=== PATIENT | male | born 1955 | race American Indian/Alaskan Native ===

== ENCOUNTER 2018-03-16 10:51 | Inpatient (IN) | payer BC, OTHER ==
[2018-03-16] MEDS ORDERED: BOOSTRIX IM ONE (11:11)
[2018-03-16] MEDS ORDERED: XYLOCAINE 2% INFILTRATI ONE (11:12)
[2018-03-16] MEDS ORDERED: MARCAINE 0.5% INFILTRATI ONE (11:12)
[2018-03-16] MEDS ORDERED: NACL 0.9% 500 ML IR ONE (11:54)
[2018-03-16 12:19] LABS: Basophils % (Auto) 0.5 % (0.0-1.8); Eosinophils # (Auto) 0.1 K/mm3 (0.0-0.4); Eosinophils % (Auto) 2.7 % (0.0-4.3); Hematocrit 44.8 % (35.5-45.6); Hemoglobin 15.1 gm/dl (11.8-15.2); Lymphocytes # (Auto) 2.3 K/mm3 (1.2-5.4); Lymphocytes % (Auto) 49.3 % (13.4-35.0); Mean Corpuscular HGB Conc 34 % (32-34); Mean Corpuscular Hemoglobin 29 pg (28-32); Mean Corpuscular Volume 85 fl (84-94); Monocytes # (Auto) 0.4 K/mm3 (0.0-0.8); Monocytes % (Auto) 8.8 % (0.0-7.3); Platelet Count 169 K/mm3 (140-440); Red Blood Count 5.28 M/mm3 (3.65-5.03); Red Cell Distribution Width 13.4 % (13.2-15.2)
[2018-03-16 12:28] LABS: Alanine Aminotransferase 33 units/L (7-56); Albumin 4.4 g/dL (3.9-5); BUN/Creatinine Ratio 14; Blood Urea Nitrogen 11 mg/dL (9-20); Calcium 8.9 mg/dL (8.4-10.2); Hemolysis Index 61
[2018-03-16 12:30] LABS: Bilirubin,Direct < 0.2 mg/dL (0-0.2)
[2018-03-16 12:33] LABS: Hepatitis A Antibody IgM Non-Reactive (NonReactive); Hepatitis B Core IgM Non-Reactive (NonReactive); Hepatitis B Surface Antigen Non-Reactive (Negative); Hepatitis C Virus Antibody Non-Reactive (NonReactive)
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
[2018-03-16] MEDS: ZOSYN/NS 4.5GM/100ML 4.5 GM/100 ML VIAL IV SCH ×2 (14:27→21:41)
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
[2018-03-16] MEDS ORDERED: MORPHINE IV PRN (19:57)
[2018-03-16] MEDS ORDERED: SODIUM CHLORIDE FLUSH SYRINGE 10 ML IV PRN (19:57)
[2018-03-16] MEDS ORDERED: TYLENOL PO PRN (19:57)
[2018-03-16] MEDS ORDERED: ZOFRAN IV PRN (19:57)
[2018-03-16] MEDS: SODIUM CHLORIDE FLUSH SYRINGE 10 ML IV SCH (21:41)
[2018-03-16] MEDS: PERCOCET 5/325 PO PRN (22:07)
[2018-03-16] MEDS: CLEOCIN 900 MG/50 mL 900 MG/50 ML BAG IV SCH (22:26)
[2018-03-17] MEDS: CLEOCIN 900 MG/50 mL 900 MG/50 ML BAG IV SCH ×2 (05:32→13:56)
[2018-03-17] MEDS: ZOSYN/NS 4.5GM/100ML 4.5 GM/100 ML VIAL IV SCH (06:13)
[2018-03-17] MEDS: PERCOCET 5/325 PO PRN (10:46)
[2018-03-17] MEDS: SODIUM CHLORIDE FLUSH SYRINGE 10 ML IV SCH (10:47)
[2018-03-17 11:20] LABS: Basophils % (Auto) 0.5 % (0.0-1.8); Eosinophils # (Auto) 0.1 K/mm3 (0.0-0.4); Eosinophils % (Auto) 0.9 % (0.0-4.3); Hematocrit 41.1 % (35.5-45.6); Hemoglobin 13.8 gm/dl (11.8-15.2); Lymphocytes # (Auto) 1.2 K/mm3 (1.2-5.4); Lymphocytes % (Auto) 18.6 % (13.4-35.0); Mean Corpuscular HGB Conc 34 % (32-34); Mean Corpuscular Hemoglobin 29 pg (28-32); Mean Corpuscular Volume 86 fl (84-94); Monocytes # (Auto) 0.6 K/mm3 (0.0-0.8); Monocytes % (Auto) 8.3 % (0.0-7.3); Platelet Count 153 K/mm3 (140-440); Red Cell Distribution Width 13.4 % (13.2-15.2)
[2018-03-17 11:39] LABS: BUN/Creatinine Ratio 12; Blood Urea Nitrogen 11 mg/dL (9-20); Calcium 8.8 mg/dL (8.4-10.2); Hemolysis Index 52
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
[2018-03-17 15:21] VITALS: BP 140/91
== END 2018-03-17 16:00 | disposition home or self-care (01) | DRG 605 ==
LOC: ED 10:51 → 3A 15:53
PROVIDERS: ADMIT Internal Medicine; ATTEND Internal Medicine
PROC: 0HBGXZZ Excision of Left Hand Skin, External Approach (ICD-10-PCS; principal; 2018-03-16)
DX: S61.052A Open bite of left thumb without damage to nail, initial encounter (principal); Y92.238 Other place in hospital as the place of occurrence of the external cause; Y04.1XXA Assault by human bite, initial encounter; Y93.89 Activity, other specified; Y99.8 Other external cause status; L03.012 Cellulitis of left finger
CPT/HCPCS: 36415; 80048; 80074; 83036; 85025; 86705; 87806; 90715; J2270; J2543

== ENCOUNTER 2018-03-19 10:12 | Outpatient (CLI) | payer OTHER ==
[2018-03-19] MEDS ORDERED: XYLOCAINE TOPICAL 2% 5ML ONE (11:38)
[2018-03-20] MEDS ORDERED: XYLOCAINE TOPICAL 2% 5ML TP ONE (15:22)
== END 2018-03-19 10:13 | disposition home or self-care (01) ==
LOC: WOUND 10:12
PROVIDERS: ATTEND Surgery
DX: S61.052A Open bite of left thumb without damage to nail, initial encounter (principal); I10 Essential (primary) hypertension; E78.5 Hyperlipidemia, unspecified; W50.3XXA Accidental bite by another person, initial encounter; Y93.89 Activity, other specified; Y92.89 Other specified places as the place of occurrence of the external cause; Y99.8 Other external cause status
CPT/HCPCS: 11042; G0463

== ENCOUNTER 2018-03-26 10:08 | Outpatient (CLI) | payer OTHER ==
[2018-03-26] MEDS ORDERED: XYLOCAINE TOPICAL 2% 5ML TP ONE (11:00)
== END 2018-03-26 10:09 | disposition home or self-care (01) ==
LOC: WOUND 10:08
PROVIDERS: ATTEND Surgery
DX: S61.002D Unspecified open wound of left thumb without damage to nail, subsequent encounter (principal); E78.5 Hyperlipidemia, unspecified; I10 Essential (primary) hypertension; W50.3XXD Accidental bite by another person, subsequent encounter

== ENCOUNTER 2018-04-02 08:01 | Outpatient (CLI) | payer OTHER ==
[2018-04-02] MEDS ORDERED: XYLOCAINE TOPICAL 4% TP ONE (08:32)
== END 2018-04-02 08:02 | disposition home or self-care (01) ==
LOC: WOUND 08:01
PROVIDERS: ATTEND Surgery
DX: S61.052D Open bite of left thumb without damage to nail, subsequent encounter (principal); E78.5 Hyperlipidemia, unspecified; I10 Essential (primary) hypertension; W50.3XXD Accidental bite by another person, subsequent encounter

== ENCOUNTER 2018-04-09 08:08 | Outpatient (CLI) | payer OTHER | END 2018-04-09 08:09 | disposition home or self-care (01) | LOC: WOUND 08:08 | PROVIDERS: ATTEND Surgery | DX: S61.052D Open bite of left thumb without damage to nail, subsequent encounter (principal); E78.5 Hyperlipidemia, unspecified; I10 Essential (primary) hypertension; W50.3XXD Accidental bite by another person, subsequent encounter | CPT/HCPCS: 99214; G0463 ==

== ENCOUNTER 2018-07-24 06:57 | Outpatient (CLI) | payer BC ==
[2018-07-24 07:27] LABS: Hematocrit 44.8 % (35.5-45.6); Hemoglobin 15.3 gm/dl (11.8-15.2); Mean Corpuscular HGB Conc 34 % (32-34); Mean Corpuscular Hemoglobin 29 pg (28-32); Mean Corpuscular Volume 85 fl (84-94); Platelet Count 200 K/mm3 (140-440); Red Blood Count 5.28 M/mm3 (3.65-5.03); Red Cell Distribution Width 13.2 % (13.2-15.2)
[2018-07-24 07:51] LABS: Alanine Aminotransferase 27 units/L (7-56); Albumin 4.5 g/dL (3.9-5); BUN/Creatinine Ratio 16; Blood Urea Nitrogen 13 mg/dL (9-20); Calcium 9.6 mg/dL (8.4-10.2); Hemolysis Index 6
== END 2018-07-24 06:58 | disposition home or self-care (01) ==
LOC: LAB 06:57
PROVIDERS: ATTEND Internal Medicine
DX: I13.2 Hypertensive heart and chronic kidney disease with heart failure and with stage 5 chronic kidney disease, or end stage renal disease (principal); I50.9 Heart failure, unspecified; N18.6 End stage renal disease; J44.9 Chronic obstructive pulmonary disease, unspecified
CPT/HCPCS: 36415; 80053; 84153; 85027

== ENCOUNTER 2019-04-17 08:12 | Outpatient (CLI) | payer BC ==
[2019-04-17 08:33] LABS: Hematocrit 46.1 % (35.5-45.6); Hemoglobin 15.7 gm/dl (11.8-15.2); Mean Corpuscular HGB Conc 34 % (32-34); Mean Corpuscular Volume 87 fl (84-94); Platelet Count 180 K/mm3 (140-440); Red Blood Count 5.31 M/mm3 (3.65-5.03); Red Cell Distribution Width 13.1 % (13.2-15.2)
[2019-04-17 08:55] LABS: Alanine Aminotransferase 38 units/L (7-56); Albumin 4.5 g/dL (3.9-5); BUN/Creatinine Ratio 12; Blood Urea Nitrogen 11 mg/dL (9-20); Calcium 9.6 mg/dL (8.4-10.2); Chol/HDL Ratio 5.88 %; HDL Cholesterol 34 mg/dL (40-59); Hemolysis Index 12; LDL Cholesterol,Direct 102 mg/dL (50-130)
== END 2019-04-17 08:13 | disposition home or self-care (01) ==
LOC: LAB 08:12
PROVIDERS: ATTEND Internal Medicine
DX: I10 Essential (primary) hypertension (principal); E78.5 Hyperlipidemia, unspecified
CPT/HCPCS: 36415; 80053; 80061; 85027

== ENCOUNTER 2019-12-23 05:58 | Outpatient (CLI) | payer BC ==
[2019-12-23 06:42] LABS: Hematocrit 48.1 % (35.5-45.6); Hemoglobin 15.9 gm/dl (11.8-15.2); Mean Corpuscular HGB Conc 33 % (32-34); Mean Corpuscular Volume 87 fl (84-94); Platelet Count 196 K/mm3 (140-440); Red Blood Count 5.54 M/mm3 (3.65-5.03)
[2019-12-23 07:02] LABS: Alanine Aminotransferase 47 units/L (7-56); Albumin 4.5 g/dL (3.9-5); BUN/Creatinine Ratio 14; Blood Urea Nitrogen 13 mg/dL (9-20); Calcium 9.8 mg/dL (8.4-10.2); Hemolysis Index 5
== END 2019-12-23 05:59 | disposition home or self-care (01) ==
LOC: LAB 05:58
PROVIDERS: ATTEND Internal Medicine
DX: Z12.5 Encounter for screening for malignant neoplasm of prostate (principal)
CPT/HCPCS: 36415; 80053; 83036; 83690; 84154; 85027

== ENCOUNTER 2020-08-07 20:22 | Emergency (ER) | payer BC ==
[2020-08-07 20:37] VITALS: BP 145/88
[2020-08-07 21:14] LABS: Basophils % (Auto) 0.3 % (0.0-1.8); Eosinophils % (Auto) 0.5 % (0.0-4.3); Hemoglobin 14.9 gm/dl (11.8-15.2); Lymphocytes # (Auto) 1.1 K/mm3 (1.2-5.4); Lymphocytes % (Auto) 16.4 % (13.4-35.0); Mean Corpuscular HGB Conc 33 % (32-34); Mean Corpuscular Volume 88 fl (84-94); Monocytes # (Auto) 0.7 K/mm3 (0.0-0.8); Monocytes % (Auto) 10.1 % (0.0-7.3); Platelet Count 161 K/mm3 (140-440); Red Cell Distribution Width 12.9 % (13.2-15.2)
[2020-08-07 21:20] LABS: BUN/Creatinine Ratio 10; Blood Urea Nitrogen 10 mg/dL (9-20); Calcium 9.5 mg/dL (8.4-10.2); Hemolysis Index 20
[2020-08-07] MEDS ORDERED: ACETAMINOPHEN 325 MG TAB PO ONE (22:20)
--- NOTE | 2020-08-07 22:21 | Emergency Department Report ---
HPI - General Chief Complaint: Pain General Time Seen by Provider: 08/07/20 21:30 - HPI HPI: This is a 65-year-old male presents to the emergency department with complaint of a 4 to 5-day history of body aches and chills. Patient denies any headache, chest pain, shortness of breath, cough, rash, abdominal pain, dysuria. He has a past medical history of hypertension. He went to see his primary care physician today, Dr. Omer, and he says that the PCP was not concerned. Patient says that he had a negative Covid 19 test last Sunday when the symptoms first began. Symptoms are worse at night. He took ibuprofen earlier today around 4 PM but woke up this evening with chills and sweats, so he came to the emergency department for further evaluation. ED Past Medical Hx - Past Medical History Previous Medical History?: Yes Hx Hypertension: Yes Hx Congestive Heart Failure: No Hx Diabetes: No Hx Asthma: No Hx COPD: No - Surgical History Past Surgical History?: No - Social History Smoking Status: Never Smoker Substance Use Type: None - Medications Home Medications: Home Medications Medication Instructions Recorded Confirmed Last Taken Type Clindamycin [Clindamycin CAP] 600 mg PO BID #10 capsule 03/17/18 Unknown Rx oxyCODONE /ACETAMINOPHEN [Percocet 1 tab PO Q8HR PRN #20 tablet 03/17/18 Unk nown Rx 5/325] Ciprofloxacin HCl [Ciprofloxacin 500 mg PO Q12H #10 tab 03/18/18 Unknown Rx TAB] ED Review of Systems ROS: Stated complaint: BODY ACHES/CHILLS Other details as noted in HPI Comment: All other systems reviewed and negative Constitutional: chills, diaphoresis Eyes: denies: eye pain, vision change ENT: denies: ear pain, throat pain Respiratory: denies: cough, shortness of breath Cardiovascular: denies: chest pain, palpitations Gastrointestinal: denies: abdominal pain, vomiting Genitourinary: denies: dysuria, discharge Musculoskeletal: denies: back pain, arthralgia Skin: denies: rash, lesions Neurological: denies: headache, weakness Physical Exam - Physical Exam Vital Signs: Vital Signs 08/07/20 08/07/20 20:35 20:37 Temperature 100 F H Pulse Rate 95 H Respiratory 20 Rate Blood Pressure 145/88 O2 Sat by Pulse 96 Oximetry Physical Exam: GENERAL: The patient is well-developed well-nourished. HENT: Normocephalic. Atraumatic. Patient has moist mucous membranes. EYES: Extraocular motions are intact. NECK: Supple. Trachea is midline. CHEST/LUNGS: There is no respiratory distress noted. HEART/CARDIOVASCULAR: There is no tachycardia. ABDOMEN: Abdomen is soft, nontender. There is no abdominal distention. SKIN: Skin is warm and dry. NEURO: The patient is awake, alert, and oriented. The patient is cooperative. The patient has no focal neurologic deficits. Normal speech. MUSCULOSKELETAL: There is no tenderness or deformity. There is no limitation range of motion. ED Course Vital Signs 08/07/20 08/07/20 20:35 20:37 Temperature 100 F H Pulse Rate 95 H Respiratory 20 Rate Blood Pressure 145/88 O2 Sat by Pulse 96 Oximetry ED Medical Decision Making - Lab Data Result diagrams: 08/07/20 20:44 08/07/20 20:44 - Medical Decision Making This patient presents with the complaint of having some body aches and chills. He does present with a low-grade fever of 100 F. The rest of his vital signs are reassuring. Patient denies any chest pain, shortness of breath, rash, nausea, vomiting, abdominal pain, headache. He was given some acetaminophen for the low-grade fever. The patient symptoms appear consistent with a nonspecific viral syndrome. He had a negative Covid testing done about 4-5 days ago, but given the current pandemic we still discussed Covid precautions. The patient will quarantine/self isolate and once again seek outpatient Covid 19 testing. He will use ibuprofen and acetaminophen as needed for fever and/or discomfort. He will return to the emergency department with any development of chest pain, shortness of breath, worsening of his symptoms, or with any acute distress. Critical Care Time: No Critical care attestation.: If time is entered above; I have spent that time in minutes in the direct care of this critically ill patient, excluding procedure time. ED Disposition Clinical Impression: Viral syndrome, Body aches, Chills Disposition: DC-01 TO HOME OR SELFCARE Is pt being admited?: No Condition: Stable Instructions: Viral Syndrome (ED) Additional Instructions: Your symptoms appear most consistent with a nonspecific viral syndrome. However, given this current pandemic, COVID-19 is in the differential of possibilities. Despite your previous negative COVID-19 test, I do recommend repeat outpatient Covid 19 testing. In the meantime, isolate/quarantine yourself and stay away from anyone who is elderly, immunocompromised or chronically ill. You can use ibuprofen every 6-8 hours and Tylenol every 4-8 hours, using the dosing on the back of the bottle, as needed for any fever or body aches. Return to the emergency department with any worsening of your symptoms, development of chest pain or shortness of breath, or with any acute distress. Referrals: JOLYNN OMER MD [Staff Physician] - 3-5 Days Forms: Work/School Release Form(ED) Time of Disposition: 22:24
== END 2020-08-07 23:14 | disposition home or self-care (01) ==
LOC: ED 20:22
DX: B34.9 Viral infection, unspecified (principal); M79.10 Myalgia, unspecified site; I10 Essential (primary) hypertension; Z79.899 Other long term (current) drug therapy
CPT/HCPCS: 36415; 80048; 85025; 99283

== ENCOUNTER 2020-09-16 06:40 | Outpatient (CLI) | payer BC ==
[2020-09-16 07:16] LABS: Basophils % (Auto) 0.7 % (0.0-1.8); Eosinophils # (Auto) 0.1 K/mm3 (0.0-0.4); Eosinophils % (Auto) 3.5 % (0.0-4.3); Hematocrit 43.6 % (35.5-45.6); Lymphocytes # (Auto) 1.8 K/mm3 (1.2-5.4); Lymphocytes % (Auto) 43.7 % (13.4-35.0); Mean Corpuscular HGB Conc 35 % (32-34); Mean Corpuscular Volume 89 fl (84-94); Monocytes # (Auto) 0.4 K/mm3 (0.0-0.8); Monocytes % (Auto) 10.2 % (0.0-7.3); Platelet Count 181 K/mm3 (140-440); Red Blood Count 4.91 M/mm3 (3.65-5.03); Red Cell Distribution Width 14.9 % (13.2-15.2)
[2020-09-16 07:41] LABS: Alanine Aminotransferase 32 units/L (7-56); Albumin 4.4 g/dL (3.9-5); BUN/Creatinine Ratio 12; Blood Urea Nitrogen 11 mg/dL (9-20); Chol/HDL Ratio 4.66 %; HDL Cholesterol 39 mg/dL (40-59); Hemolysis Index 5; LDL Cholesterol,Direct 88 mg/dL (50-130)
== END 2020-09-16 06:41 | disposition home or self-care (01) ==
LOC: LAB 06:40
PROVIDERS: ATTEND Internal Medicine
DX: I10 Essential (primary) hypertension (principal); E78.2 Mixed hyperlipidemia
CPT/HCPCS: 36415; 80053; 80061; 83036; 84153; 85025

== ENCOUNTER 2021-09-23 07:10 | Outpatient (CLI) | payer BC ==
[2021-09-23 07:52] LABS: Hematocrit 47.1 % (35.5-45.6); Hemoglobin 15.2 gm/dl (11.8-15.2); Mean Corpuscular HGB Conc 32 % (32-34); Mean Corpuscular Volume 86 fl (84-94); Platelet Count 219 K/mm3 (140-440); Red Blood Count 5.47 M/mm3 (3.65-5.03)
[2021-09-23 08:12] LABS: Alanine Aminotransferase 30 units/L (7-56); Albumin 4.4 g/dL (3.9-5); BUN/Creatinine Ratio 18; Blood Urea Nitrogen 16 mg/dL (9-20); Calcium 9.5 mg/dL (8.4-10.2); Chol/HDL Ratio 5.62 %; HDL Cholesterol 32 mg/dL (40-59); Hemolysis Index 7; LDL Cholesterol,Direct 95 mg/dL (50-130)
== END 2021-09-23 07:11 | disposition home or self-care (01) ==
LOC: LAB 07:10
PROVIDERS: ATTEND Internal Medicine
DX: Z12.5 Encounter for screening for malignant neoplasm of prostate (principal); I10 Essential (primary) hypertension; E78.2 Mixed hyperlipidemia
CPT/HCPCS: 36415; 80053; 80061; 84153; 85027

== ENCOUNTER 2021-12-23 09:45 | Outpatient (CLI) | payer BC ==
[2021-12-23 10:08] LABS: Basophils % (Auto) 0.9 % (0.0-1.8); Eosinophils # (Auto) 0.1 K/mm3 (0.0-0.4); Eosinophils % (Auto) 3.7 % (0.0-4.3); Hematocrit 47.7 % (35.5-45.6); Hemoglobin 15.5 gm/dl (11.8-15.2); Lymphocytes # (Auto) 1.8 K/mm3 (1.2-5.4); Lymphocytes % (Auto) 45.9 % (13.4-35.0); Mean Corpuscular HGB Conc 33 % (32-34); Mean Corpuscular Volume 85 fl (84-94); Monocytes # (Auto) 0.4 K/mm3 (0.0-0.8); Monocytes % (Auto) 9.7 % (0.0-7.3); Platelet Count 176 K/mm3 (140-440); Red Blood Count 5.58 M/mm3 (3.65-5.03); Red Cell Distribution Width 13.4 % (13.2-15.2)
[2021-12-23 11:05] LABS: Alanine Aminotransferase 29 units/L (7-56); Albumin 4.5 g/dL (3.9-5); BUN/Creatinine Ratio 14; Blood Urea Nitrogen 13 mg/dL (9-20); Calcium 9.8 mg/dL (8.4-10.2); Chol/HDL Ratio 5.91 %; HDL Cholesterol 35 mg/dL (40-59); Hemolysis Index 7; LDL Cholesterol,Direct 127 mg/dL (50-130)
== END 2021-12-23 09:46 | disposition home or self-care (01) ==
LOC: LAB 09:45
PROVIDERS: ATTEND Internal Medicine
DX: Z12.5 Encounter for screening for malignant neoplasm of prostate (principal); I10 Essential (primary) hypertension; E78.2 Mixed hyperlipidemia; E78.5 Hyperlipidemia, unspecified
CPT/HCPCS: 36415; 80053; 80061; 83036; 84153; 85025

== ENCOUNTER 2022-06-15 06:35 | Outpatient (CLI) | payer BC ==
[2022-06-15 07:14] LABS: Hematocrit 47.5 % (35.5-45.6); Hemoglobin 15.6 gm/dl (11.8-15.2); Mean Corpuscular HGB Conc 33 % (32-34); Mean Corpuscular Volume 87 fl (84-94); Platelet Count 200 K/mm3 (140-440); Red Blood Count 5.48 M/mm3 (3.65-5.03); Red Cell Distribution Width 13.2 % (13.2-15.2)
[2022-06-15 08:00] LABS: Alanine Aminotransferase 22 units/L (7-56); Albumin 4.6 g/dL (3.9-5); BUN/Creatinine Ratio 16; Blood Urea Nitrogen 14 mg/dL (9-20); Calcium 9.7 mg/dL (8.4-10.2); Chol/HDL Ratio 6.33 %; HDL Cholesterol 33 mg/dL (40-59); Hemolysis Index 8; LDL Cholesterol,Direct 118 mg/dL (50-130)
[2022-06-15 08:27] LABS: Basophils % (Manual) 0 % (0.0-1.8); Total Cells Counted 100
[2022-06-15 08:28] LABS: Giant Platelets Few; Large Platelets Few; Platelet Estimate Consistent w Auto; RBC Morphology Normal
== END 2022-06-15 06:36 | disposition home or self-care (01) ==
LOC: LAB 06:35
PROVIDERS: ATTEND Internal Medicine
DX: E78.2 Mixed hyperlipidemia (principal); I10 Essential (primary) hypertension; E78.5 Hyperlipidemia, unspecified
CPT/HCPCS: 36415; 80053; 80061; 84153; 85007; 85025

== ENCOUNTER 2022-07-06 08:22 | Outpatient (CLI) | payer BC | END 2022-07-06 08:23 | disposition home or self-care (01) | LOC: LAB 08:22 | PROVIDERS: ATTEND Internal Medicine | DX: R73.9 Hyperglycemia, unspecified (principal) | CPT/HCPCS: 36415; 82947; 83036 ==